=== PATIENT | female | born 1960 | race Hispanic/Latino ===

== ENCOUNTER 2016-10-26 19:40 | Emergency (ER) | payer OTHER ==
[~2016-10-26] VITALS: Ht 152.4 cm; Wt 64.5 kg
[~2016-10-26 19:40] MED LIST: ALBU8.5H4 IH; MUPI22OI2 TOP; OMEP40CA36 PO; POLY17PO6 PO
[2016-10-26 19:52] VITALS: BP 187/95; PULSE 70; RESP 18; O2SAT 97
[2016-10-26 20:47] LABS: BASOPHILS % (AUTO) 0.6 % (0-3); EOSINOPHILS % (AUTO) 1.9 % (0-5); MONOCYTES % (AUTO) 8.1 % (4-12); Mean Corpuscular Hemoglobin 29.9 pg (27.0-35.0); NEUTROPHILS % (AUTO) 47.1 % (40-74); Platelet Count 207 bil/L (150-400)
--- NOTE | 2016-10-26 21:13 | ED.REPORT ---
HPI-Abd Pain F 40 and Over Date of Service Oct 26, 2016 ED Provider: Leighann Eaton MD This is a 55 year old female with a history of asthma presenting to the emergency department complaining of abdominal pain that radiates to the back that began 3 weeks ago but worsened yesterday. Pain is constant, dull, and is exacerbated by eating. Associated symptoms include nausea, chills, constipation , and rash to abdomen. Denies vomiting, diarrhea, hematochezia, dysuria, hematuria, hematemesis, melena. Nursing Notes Stated Complaint: UPPER ABDOMINAL PAIN Chief Complaint: Female Abdominal Pain Nursing Notes Reviewed: Yes Allergies: Coded Allergies: codeine (Verified Allergy, Unknown, RASH, 10/26/16) Scheduled Albuterol-Expunged Drug, Do Not Renew! (Albuterol-Expunged Drug, Do Not Renew!) 8.5 Gm Hfa.aer.ad 2 PUFFS IH PRN Take 2 puffs every 4-5 hours if needed for wheezing Mupirocin (Mupirocin Ointment) 22 Gm Oint...g. 1 APPLIC TOP TID Omeprazole (Omeprazole) 40 Mg Capsule.dr 40 MG PO DAILY Miscellaneous Medications Polyethylene Glycol 3350 (Miralax) 17 Gm Powd.pack 17 GM PO General Time Seen by MD: 21:11 Chief Complaint Abdominal pain Hx Obtained From: Patient Arrived By: Walk-in Sudden in Onset?: Yes Onset Occurred: Yesterday Symptom Duration: Since onset Severity: Current: Mild Pertinent Negative: Pt denies other symptoms Recent Healthcare: No recent doctor visit, No recent hospitalization Similar Sx Previous: No Past Medical History Past Medical History Asthma Fibroids Past Surgical History Oophorectomy Reports: Appendectomy Smoking History Never Smoker Ambulatory Status Independent Review of Systems Constitutional: Reports: Chills, Denies: Fever Respiratory: Denies: Non-productive cough, Shortness of breath Cardiovascular: Denies: Chest pain GI: Reports: Abdominal pain, Nausea, Denies: Constipation, Diarrhea, Vomiting Female: Denies: Dysuria Musculoskeletal: Reports: Back pain Complete sys rev & neg: except as marked. Physical Exam Vital Signs Vital Signs (First) Date Time Temp Pulse Resp B/P Pulse Ox O2 Delivery O2 Flow Rate FiO2 10/26/16 19:52 37.1 70 18 187/95 97 Room Air Initial VS: Reviewed Head / Eyes: Atraumatic, Normocephalic, PERRL ENT: Mucous membranes moist, Conjunctiva normal, No scleral icterus Neck: Supple, Non-tender, Full range of motion Extremities: Vascular intact Neurologic: Alert, Oriented, Nonfocal Psychiatric: Mood/affect normal, Behavior normal, Normal thought content General/Constitutional: Awake, Alert Respiratory / Chest: Breath sounds NL, Breath sounds = bilat, No respiratory distress, No rales, No rhonchi, No wheezing, No stridor Cardiovascular: Heart rate NL, Regular rhythm, Heart sounds NL, Peripheral circulation NL Abdomen: No guarding, No rebound, BS normoactive Tenderness/Guarding/Rebound: Positive: Tender diffuse Back: No midline vertebral tend Skin: Warm, Dry Mildly erythematous, scaly rash just over LLQ, not where pain is Interpretation & Diagnostics Interpretation & Diagnostics: CT KUB IMPRESSION: 1. No imaging explanation for left flank pain. 2. Multifocal fatty infiltration of the liver, with geographic subcapsular fatty sparing. 3. Scattered pancolonic diverticulosis. 4. Small fat-containing midline supraumbilical ventral hernia. Dictated by: Pietro Sebastian M.D. on 10/26/2016 at 21:54 Approved by: Pietro Sebastian M.D. on 10/26/2016 at 22:00 Lab Results Interpretation Result Diagram: 10/26/16201910/26/16 2020 Test 10/26/16 20:10 10/26/16 20:20 10/26/16 21:17 Hold Purple Top Tube Received (Received) Hold Blue Top Tube Received (Received) Hold [place] Top Tube Received (Received) Hold [place] Top Tube Received (Received) White Blood Count 8.8th/mm3 (3.8-10.1) Red Blood Count 4.31mil/mm3 (3.90-5.20) Hemoglobin 12.9g/dL (12.0-15.6) Hematocrit 39.2% (35.0-46.0) Mean Corpuscular Volume 91.0fL (81-100) Mean Corpuscular Hemoglobin 29.9pg (27.0-35.0) Mean Corpuscular Hemoglobin Concent 32.9% (32.0-37.0) Red Cell Distribution Width 13.2% (12.3-15.4) Platelet Count 207bil/L (150-400) Neutrophils (%) (Auto) 47.1% (40-74) Lymphocytes (%) (Auto) 42.1% (14-46) Monocytes (%) (Auto) 8.1% (4-12) Eosinophils (%) (Auto) 1.9% (0-5) Basophils (%) (Auto) 0.6% (0-3) Sodium Level 140mEq/L (134-144) Potassium Level 3.9mEq/L (3.5-5.2) Chloride Level 100mEq/L (97-108) Carbon Dioxide Level 27mmol/L (18-29) Blood Urea Nitrogen 15mg/dL (6-24) Creatinine 0.49mg/dL (0.57-1.00) Estimat Glomerular Filtration Rate 186mL/min (>59) Glucose Level 119mg/dL (60-99) Calcium Level 9.7mg/dL (8.5-10.1) Magnesium Level 2.0mg/dL (1.6-2.6) Total Bilirubin 0.3mg/dL (0.0-1.2) Aspartate Amino Transf (AST/SGOT) 18U/L (0-50) Alanine Aminotransferase (ALT/SGPT) 20U/L (0-32) Alkaline Phosphatase 90U/L (25-150) Total Protein 8.1g/dL (6.4-8.4) Albumin 4.4g/dL (3.4-5.0) Lipase 30U/L (13-60) Urine Color Yellow (YELLOW) Urine Appearance Clear (CLEAR,HAZY) Urine pH 7.5 (5.0-8.0) Urine Specific [place] 1.020 (1.003-1.035) Urine Protein Negativemg/dL (NEG,TRACE) Urine Glucose (UA) Negativemg/dL (NEGATIVE) Urine Ketones Negativemg/dL (NEGATIVE) Urine Occult Blood Trace (NEGATIVE) Urine Nitrite Negative (NEGATIVE) Urine Bilirubin Negative (NEGATIVE) Urine Urobilinogen Normalmg/dL (NORMAL) Urine Leukocyte Esterase Negative (NEGATIVE) Urine RBC 0-2/hpf (0-2) Urine WBC 0-5/hpf (0-5) Urine Epithelial Cells None/hpf (NONE-MOD) Urine Crystals None seen (NONE SEEN) Urine Bacteria Few/hpf (NONE-FEW) Urine Hyaline Casts None/lpf (NONE) Urine Granular Casts None seen (NONE SEEN) Urine Waxy Casts None seen (NONE SEEN) Urine Red Blood Cell Casts None seen (NONE SEEN) Urine White Blood Cell Casts None seen (NONE SEEN) Urine Mucus None seen (None Seen) Urine Trichomonas None seen (NONE SEEN) Urine Yeast None (NONE SEEN) Urinalysis Comment None Urine Culture Reflexed Not indicated Re-Eval/Medical Decision Med Decision/Clinical Course 55-year-old female with no past medical history here with left flank pain. Differential diagnosis includes but is not limited to zoster versus UTI versus pyelonephritis versus kidney stone. CT KUB does not show a stone. Labs are normal. Patient appears to have a now resolving shingles rash. At this time, I do not feel steroids or antivirals are warranted given the rash appears to be old. She is amenable to discharge at this time with [place] for pain and follow up with her primary care physician. She has been given very strict return precautions. Re-Evaluation/Progress : Time of Eval: 22:17 Re-Evaluation/Progress Note: Discussed CT results and plan for d/c, all questions addressed. Counseled Regarding: Diagnosis, Lab results, Need for follow-up, When/why to return to ED Discharge & Departure Primary Impression: Shingles rash Herpes zoster complications: without complications Qualified Code: B02.9 - Zoster without complications Disposition: Home Discharge Condition All VS Reviewed: Yes Condition: Stable Patient Instructions: Herpes Zoster (ED) Additional Instructions: Follow-up with your primary care provider. Return to the emergency department if you develop any new or worsening symptoms. Referrals: Twan Hawkins MD (PCP) Scribe Attestation Portions of this note were transcribed by Ritchie Webster. I, Dr. Eaton personally performed the history, physical exam and medical decision-making; I reviewed and confirmed the accuracy of the information in the transcribed note. Signed by: Ritchie Webster. 10/26/2016, 23:00. Leighann Eaton MD Oct 26, 2016 21:13 RITCHIE WEBSTER Oct 26, 2016 21:17
[2016-10-26] MEDS ORDERED: Ondansetron 2 mg/mL 2 mL Inj IVPUSH ONE (21:15)
[2016-10-26] MEDS ORDERED: HYDROmorphone 1 mg/mL Inj IVPUSH ONE (21:15)
[2016-10-26 21:36] LABS: APPEARANCE,URINE CLEAR (CLEAR,HAZY); COLOR,URINE YELLOW (YELLOW); OCCULT BLOOD,URINE TRACE (NEGATIVE); PH,URINE 7.5 (5.0-8.0); UROBILINOGEN,URINE NORMAL (NORMAL)
--- NOTE | 2016-10-26 22:06 | DRSVH ---
PROCEDURE: CT KUB ([id number]) INDICATIONS: 55 year-old female with worsening left flank pain for the past week. TECHNIQUE: Noncontrast 5 mm thick sections acquired from the diaphragms to the symphysis. 5 mm thick coronal an d sagittal reformats were then performed. For radiation dose reduction, the following was used: aut omated exposure control, adjustment of mA and/or kV according to patient size. COMPARISON: [facility], CT, ABD/PELVIS W/CON (PNL), 04/30/2013, 13:18. [facility], US, US ABDOMEN, 10/16/2016, 7:28. FINDINGS: Image quality: Excellent. Lung bases: Lung bases are clear. Heart size is normal. Urinary system: Both kidneys are normal in size. No kidney stones. No hydronephrosis or perinephri c fat stranding. Both ureters appear non-dilated throughout their expected courses. Bladder wall th ickness is normal; no calcified bladder stones. Other solid organs: Liver and spleen are normal in size. There is multifocal fatty infiltration of the liver, with patchy subcapsular sparing. Gallbladder is contracted at the time of scan. Pancreas is normal in contours. No adrenal nodules. Peritoneum and bowel: Unenhanced bowel loops demonstrate normal wall thickness and caliber. Scatter ed colonic diverticula are present. No free fluid or air. Nodes and vessels: No retroperitoneal or mesenteric adenopathy by size criteria. Aorta and inferior vena cava are normal in caliber, with mild aortoiliac atherosclerosis. Abdominal wall: Small fat-containing midline supraumbilical ventral hernia is unchanged. Pelvis: No free pelvic fluid. No inguinal hernias or adenopathy. Uterus and ovaries are normal in s ize. Bones: No suspicious bony lesions. No vertebral body compression fractures. IMPRESSION: 1. No imaging explanation for left flank pain. 2. Multifocal fatty infiltration of the liver, with geographic subcapsular fatty sparing. 3. Scattered pancolonic diverticulosis. 4. Small fat-containing midline supraumbilical ventral hernia. Dictated by: Pietro Sebastian M.D. on 10/26/2016 at 21:54 Approved by: Pietro Sebastian M.D. on 10/26/2016 at 22:00
[2016-10-26] MEDS ORDERED: _HYDROcodone/APAP 5-325 mg Tablet PO PRN (22:20)
[2016-10-26 23:16] VITALS: BP 114/57; PULSE 68; RESP 16; O2SAT 93
== END 2016-10-26 23:14 | disposition home or self-care (01) ==
LOC: SED 19:40
DX: B02.9 Zoster without complications (principal); J45.909 Unspecified asthma, uncomplicated; Z79.51 Long term (current) use of inhaled steroids; Z88.5 Allergy status to narcotic agent
CPT/HCPCS: 36415; 74176; 80053; 81000; 83690; 83735; 85025; 96374; 96375; 99285; J1170; J2405

== ENCOUNTER 2016-10-30 13:12 | Emergency (ER) | payer OTHER ==
[~2016-10-30] VITALS: Ht 162.6 cm; Wt 69.1 kg
[2016-10-30 13:17] VITALS: BP 162/91; PULSE 67; RESP 15; O2SAT 98
[2016-10-30] MEDS ORDERED: 0.9% Sodium Chloride 1,000 ML IV ONE (15:23)
[2016-10-30] MEDS ORDERED: Pantoprazole 4 mg/mL 10 mL Inj IVPUSH ONE (15:25)
--- NOTE | 2016-10-30 15:31 | ED.REPORT ---
HPI-Abd Pain F 40 and Over Date of Service Oct 30, 2016 ED Provider: Bashir Herr PA-C Susanna is an otherwise healthy Tajik-speaking 55-year-old female who presents with a chief complaint of abdominal pain. She reports pain in her left upper quadrant that radiates to her back and right upper quadrant. She states the pain has been there for approximately 3 weeks, is not aggravated by eating, is aggravated by the fact of sitting up. She reports a few episodes of vomiting 3 days ago. Denies hematemesis, hematochezia, melena, diarrhea, hematuria, urinary symptoms. She was seen in this department 3 days ago for the same complaint and reports that is unchanged. At that time her abdominal CT was normal, CBC, CMP and UA were normal. She appeared to have a resolving herpes zoster rash. She is diagnosed with shingles and constipation. She was discharged with hydrocodone/APAP 5/325 which she says is not helpful. She followed up with her primary care provider this morning as instructed and was sent here. Admit history appendectomy, oophorectomy, unsure which side and ovarian cyst. Nursing Notes Stated Complaint: BACK AND ABD PAIN Chief Complaint: Female Abdominal Pain Nursing Notes Reviewed: Yes Allergies: Coded Allergies: codeine (Verified Allergy, Unknown, RASH, 10/26/16) Scheduled Albuterol-Expunged Drug, Do Not Renew! (Albuterol-Expunged Drug, Do Not Renew!) 8.5 Gm Hfa.aer.ad 2 PUFFS IH PRN Take 2 puffs every 4-5 hours if needed for wheezing Mupirocin (Mupirocin Ointment) 22 Gm Oint...g. 1 APPLIC TOP TID Omeprazole (Omeprazole) 40 Mg Capsule.dr 40 MG PO DAILY Omeprazole (Omeprazole) 20 Mg Capsule.dr 20 MG PO DAILY Scheduled PRN oxyCODONE (oxyCODONE) 5 Mg Tablet 5 MG PO Q4H PRN PRN For Pain Miscellaneous Medications Polyethylene Glycol 3350 (Miralax) 17 Gm Powd.pack 17 GM PO General Time Seen by MD: 15:03 Chief Complaint Abdominal pain Sudden in Onset?: No Past Medical History Past Medical History Asthma Fibroids Past Surgical History Oophorectomy Reports: Appendectomy Smoking History Never Smoker Ambulatory Status Independent Review of Systems Negative unless stated otherwise in history of present illness Physical Exam General: Well appearing, well developed, well nourished, no acute distress. Head: Atraumatic, normocephalic. Eyes: No scleral icterus or injection. No discharge. Vision grossly intact. ENT: Voice clear, hearing grossly intact. Respiratory: Regular rate and rhythm. Breath sounds present, clear to auscultation and equal bilaterally. Cardiovascular: Regular rate and rhythm, without murmur, gallop or rub. No pedal edema. Gastrointestinal: Abdomen tender primarily left upper quadrant, but also the right upper quadrant without guarding or rebound. Bowel sounds normoactive. Skin: Warm and dry. Neurological: Grossly nonfocal. Psychological: Alert and oriented. Speech appropriate, linear and logical. Behavior appropriate. Vital Signs Vital Signs (First) Date Time Temp Pulse Resp B/P Pulse Ox O2 Delivery O2 Flow Rate FiO2 10/30/16 13: 36.1 67 15 162/91 98 Room Air Initial VS: Reviewed, Vital signs normal Interpretation & Diagnostics Lab Results Interpretation Result Diagram: 10/30/16 1550 10/30/16 1550 Test 10/30/16 15:50 10/30/16 19:18 White Blood Count 8.1th/mm3 (3.8-10.1) Red Blood Count 4.43mil/mm3 (3.90-5.20) Hemoglobin 13.1g/dL (12.0-15.6) Hematocrit 40.3% (35.0-46.0) Mean Corpuscular Volume 91.0fL (81-100) Mean Corpuscular Hemoglobin 29.6pg (27.0-35.0) Mean Corpuscular Hemoglobin Concent 32.5% (32.0-37.0) Red Cell Distribution Width 13.0% (12.3-15.4) Platelet Count 217bil/L (150-400) Neutrophils (%) (Auto) 51.8% (40-74) Lymphocytes (%) (Auto) 39.2% (14-46) Monocytes (%) (Auto) 6.6% (4-12) Eosinophils (%) (Auto) 1.4% (0-5) Basophils (%) (Auto) 0.5% (0-3) Hold Purple Top Tube Received (Received) Hold Blue Top Tube Received (Received) Hold Urine Received (Received) Sodium Level 139mEq/L (134-144) Potassium Level 4.3mEq/L (3.5-5.2) Chloride Level 100mEq/L (97-108) Carbon Dioxide Level 25mmol/L (18-29) Blood Urea Nitrogen 10mg/dL (6-24) Creatinine 0.49mg/dL (0.57-1.00) Estimat Glomerular Filtration Rate 186mL/min (>59) Glucose Level 95mg/dL (60-99) Calcium Level 9.5mg/dL (8.5-10.1) Total Bilirubin 0.7mg/dL (0.0-1.2) Aspartate Amino Transf (AST/SGOT) 21U/L (0-50) Alanine Aminotransferase (ALT/SGPT) 21U/L (0-32) Alkaline Phosphatase 80U/L (25-150) Total Protein 8.3g/dL (6.4-8.4) Albumin 4.4g/dL (3.4-5.0) Lipase 23U/L (13-60) Hold Red Top Tube Received (Received) Hold [place] Top Tube Received (Received) Urine Color Yellow (YELLOW) Urine Appearance Clear (CLEAR,HAZY) Urine pH 7.5 (5.0-8.0) Urine Specific [place] 1.015 (1.003-1.035) Urine Protein Negativemg/dL (NEG,TRACE) Urine Glucose (UA) Negativemg/dL (NEGATIVE) Urine Ketones Negativemg/dL (NEGATIVE) Urine Occult Blood Negative (NEGATIVE) Urine Nitrite Negative (NEGATIVE) Urine Bilirubin Negative (NEGATIVE) Urine Urobilinogen Normalmg/dL (NORMAL) Urine Leukocyte Esterase Negative (NEGATIVE) Urine RBC 0-2/hpf (0-2) Urine WBC 0-5/hpf (0-5) Urine Epithelial Cells None/hpf (NONE-MOD) Urine Crystals None seen (NONE SEEN) Urine Bacteria Few/hpf (NONE-FEW) Urine Hyaline Casts None/lpf (NONE) Urine Granular Casts None seen (NONE SEEN) Urine Waxy Casts None seen (NONE SEEN) Urine Red Blood Cell Casts None seen (NONE SEEN) Urine White Blood Cell Casts None seen (NONE SEEN) Urine Mucus None seen (None Seen) Urine Trichomonas None seen (NONE SEEN) Urine Yeast None (NONE SEEN) Urinalysis Comment None Urine Culture Reflexed Not indicated Re-Eval/Medical Decision Med Decision/Clinical Course 55-year-old female with a chief complaint of left-sided abdominal pain. This is pain that she was in the department several days ago for, and has had little relief. She was diagnosed with shingles at that time. She reports the pain is the same. On physical examination did not see any vesicular rash, only some dark spots that may be resolving rash. She is tender in her right upper and left upper quadrant, but without peritoneal signs. Little response to ketorolac, acetaminophen, ondansetron and pantoprazole added IV fluids, GI cocktail to minimal effect. Added morphine and jeana labs, urine. All return normal. I discussed the case with Dr. Gillis. We do not feel there is indication to repeat CT considering normal labs. At this point I do not think diverticulitis, pancreatitis, bleeding ulcer, perforation, obstruction are likely. Discussed these findings with the patient and the family. Prescribed omeprazole , Tums and primary care follow-up as soon as possible. Advised 1000 mg of acetaminophen every 6 hours and prescribe a small amount of oxycodone 5 mg supplement. I discussed all this with the patient and her family. They feel comfortable with the plan ready for discharge. Answered all questions to the best of my ability Discharge & Departure Primary Impression: Abdominal pain Abdominal location: left upper quadrant Qualified Code: R10.12 - Left upper quadrant pain Discharge Condition All VS Reviewed: Yes Condition: Stable Patient Instructions: Acute Abdominal Pain (ED) Additional Instructions: Evaluation in the emergency department for abdominal pain. It seems your pain is unchanged from your previous visit to the emergency department, when CT and labs were all normal. Do not see an indication to repeat the CT at this point, though we did repeat labs which were normal again. This is reassuring that this is unlikely to be caused by something dangerous but frustrating because is difficult for us to say why you feel this pain. you did seem to improve somewhat with medications at target your stomach. For that reason I am prescribing omeprazole to be taken once a day for the next 2 weeks. This medication reduces the acid in her stomach. You can also take 2 Tums if you needed more relief of the pain in your stomach. For the pain I recommend 1000 mg of Tylenol every 6 hours. I will also prescribe a small amount of oxycodone to be taken in addition to the Tylenol if you need to. Please do not operate a vehicle or drink alcohol within 4 hours of taking this medication. Please follow-up with your primary care provider in the next few days. Return to emergency department for any new or worsening symptoms including increasing pain , fever, bloody/tarry stool. Referrals: Twan Hawkins MD (PCP) EDSupervising Provider for APC: Twan Gillis MD Attending Statement I discussed patient with EVAN Herr. I saw and evaluated patient independently. In brief patient with epigastric pain left upper quadrant pain. Patient had normal labs and CT scan 2 days ago. Now with epigastric pain. Labs are unremarkable. Urine negative for infection. On exam no rebound or guarding no peritoneal signs. Pain improved with GI cocktail. Possible gastritis. Given normal labs, normal workup, no peritoneal signs, reassuring exam, improvement with GI cocktail, patient stable for discharge home with return precautions. copies to: Twan Hawkins MD, Seth PA-C Oct 30, 2016 15:31 Twan Gillis MD Oct 30, 2016 15:57
[2016-10-30] MEDS ORDERED: Alum-Mag Hydrox-Simeth 30 mL Suspension PO ONE (16:10)
[2016-10-30 17:28] LABS: BASOPHILS % (AUTO) 0.5 % (0-3); EOSINOPHILS % (AUTO) 1.4 % (0-5); MONOCYTES % (AUTO) 6.6 % (4-12); Mean Corpuscular Hemoglobin 29.6 pg (27.0-35.0); NEUTROPHILS % (AUTO) 51.8 % (40-74); Platelet Count 217 bil/L (150-400)
[2016-10-30 18:17] VITALS: BP 124/61; PULSE 64; RESP 12; O2SAT 96
[2016-10-30 19:45] LABS: APPEARANCE,URINE CLEAR (CLEAR,HAZY); COLOR,URINE YELLOW (YELLOW); OCCULT BLOOD,URINE NEGATIVE (NEGATIVE); PH,URINE 7.5 (5.0-8.0); UROBILINOGEN,URINE NORMAL (NORMAL)
[2016-10-30] MEDS ORDERED: OMEP20CA11 PO (20:30)
[2016-10-30] MEDS ORDERED: OXYC5TAB72 PO (20:30)
[2016-10-30 20:54] VITALS: BP 126/64; PULSE 66; RESP 14; O2SAT 96
== END 2016-10-30 20:55 ==
LOC: SED 13:12
DX: R10.12 Left upper quadrant pain (principal); J45.909 Unspecified asthma, uncomplicated; Z88.5 Allergy status to narcotic agent
CPT/HCPCS: 36415; 80053; 81000; 81002; 83690; 85025; 96361; 96374; 96375; 96376; 99285; G0463; J2270; J7030